=== PATIENT | female | born 1975 | race Caucasian/White ===

== ENCOUNTER 2016-11-06 12:32 | Emergency (ER) | payer MEDICAID ==
[~2016-11-06] VITALS: Ht 170.2 cm; Wt 70.4 kg
[~2016-11-06 12:32] MED LIST: ALEVE220 MG PO; ANTIVERT25 M1 PO; BACTRIM DS1 TAB PO; CIPRO250 MG PO; COLACE100 M1 PO; COLACE100 MG PO; IBUPROFEN800 M1 PO; IRON 100 PLUS1 EACH PO; KEFLEX500 MG PO; MACROBID 100 M100 MG PO; MOTRIN600 MG PO; MOTRIN800 MG PO; MULTIVITAMIN1 TAB PO; NO HOME MEDICATION; NORCO 5/325 TAB1 TAB PO; PRENATAL TABLE1 EAC3 PO; PRILOSEC OTC20 MG PO; PROTONIX20 M2 PO; TYLENOL #31 TAB PO; TYLENOL PM EX-S1 TAB PO
[2016-11-06 14:52] LABS: BASO % 0.6 % (0-2); EOS % 1.3 % (0-7); EOSINOPHIL ABSOLUTE COUNT 0.1 tho/cmm (0.0-0.7); HCT-HEMATOCRIT 36.9 % (34.0-49.0); HGB-HEMOGLOBIN 12.1 gm/dl (12.0-15.5); LYMPH % 30.8 % (20-45); LYMPH ABSOLUTE COUNT 1.9 tho/cmm (0.8-4.5); MCH (MEAN CORPUSCULAR HGB) 27.9 pg (28.0-32.0); MCHC MEAN CORPUSCULAR HGB CONC 32.8 % (32.0-36.0); MEAN PLATELET VOLUME 11.6 cmc (9.4-12.4); MONO % 5.1 % (0-12); MONOCYTE ABSOLUTE COUNT 0.3 tho/cmm (0.0-1.2); NEUTROPHIL ABSOLUTE COUNT 3.9 tho/cmm (1.6-8.0); NEUTROPHIL-AUTOMATED 3.9 tho/cmm (1.6-8.0); NEUTROPHILS % 62.2 % (40-80); PLATELET COUNT 186 tho/cmm (150-450); RED BLOOD COUNT 4.34 mil/cmm (4.00-5.20); WHITE BLOOD COUNT 6.3 tho/cmm (4.0-10.0)
[2016-11-06 15:26] LABS: URINE APPEARANCE CLOUDY; URINE BILIRUBIN NEGATIVE (NEG); URINE BLOOD LARGE (NEG); URINE COLOR YELLOW; URINE GLUCOSE (UA) NEGATIVE (NEG); URINE KETONE NEGATIVE (NEG); URINE LEUKOCYTE ESTERASE NEGATIVE (NEG); URINE NITRITE POSITIVE (NEG); URINE PROTEIN NEGATIVE (NEG); URINE SPECIFIC GRAVITY 1.005 (1.003-1.030)
[2016-11-06 15:39] LABS: URINE BACTERIA 4+; URINE EPITHELIAL CELLS 0-1 /[HPF] (0-10); URINE RBC 25-30 /[HPF] (0-5); URINE WBC 0-2 /[HPF] (0-5)
== END 2016-11-06 16:40 ==
LOC: EDMED 12:32
PROVIDERS: Physician Assistant
PROC: BW4GZZZ Ultrasonography of Pelvic Region (ICD-10-PCS; principal; 2016-11-06)
DX: N93.8 Other specified abnormal uterine and vaginal bleeding (principal); N39.0 Urinary tract infection, site not specified; F17.200 Nicotine dependence, unspecified, uncomplicated